=== PATIENT | male | born 1950 | race Caucasian/White ===

== ENCOUNTER → 2018-02-14 | Outpatient (CLI) | payer MEDICARE ==
--- NOTE | 2018-02-14 12:21 | EST ---
EXERCISE STRESS DATE OF SERVICE: 02/14/2018 AGE: 68 SEX: M HT: 74 WT: 235 PROTOCOL: Humberto STAGE: III DURATION OF EXERCISE: 7-1/2 minutes HEART RATE REST: 67 BLOOD PRESSURE REST: 157/91 MAXIMUM HEART RATE ACHIEVED: 136 MAXIMUM BLOOD PRESSURE: 192/91 85% MPHR: 131 100% MPHR: 154 METS: 9 INDICATIONS: Dyspnea. CLINICAL INFORMATION: Baseline EKG shows sinus rhythm, PVCs and nonspecific ST-T wave changes. Patient exercised on Humberto protocol for a total of 7-1/2 minutes, achieving 9 METs, 88% of predicted maximal heart rate without chest pain. There was worsening of the baseline ST-T wave changes noted. CONCLUSIONS: 1. Average exercise tolerance. 2. Inconclusive EKG part of the stress test due to baseline EKG abnormalities. 3. Consider stress imaging study for more definitive evaluation. MMJOSE E / ADALIN: [id number] /
--- NOTE | 2018-02-14 12:23 | ECHOF ---
Referral Reason:R06.00 Dyspnea unspecified MEASUREMENTS -------- HEIGHT: 188.0 cm WEIGHT: 106.6 kg BP: 157/91 RVIDd: 3.6 cm (< 3.3) IVSd: 1.1 cm (0.6 - 1.1) LVIDd: 4.6 cm (3.9 - 5.3) LVPWd: 1.2 cm (0.6 - 1.1) IVSs: 1.4 cm LVIDs: 3.5 cm LVPWs: 1.8 cm LA Diam: 4.5 cm (2.7 - 3.8) LAESV Index (A-L): 33.00 ml/m Ao Diam: 3.5 cm (2.0 - 3.7) AV Cusp: 2.4 cm (1.5 - 2.6) EPSS: 1.2 cm MV E Chase: 0.62 m/s MV DecT: 316 ms MV A Chase: 0.92 m/s MV E/A Ratio: 0.67 AV maxP.13 mmHg AV meanP.48 mmHg RAP: 5.00 mmHg RVSP: 41.37 mmHg MV EF SLOPE: 39.73 mm/s (70 - 150) MV EXCURSION: 1.65 cm (> 18.000) FINDINGS -------- This was a technically adequate study. The left ventricular size is normal. There is borderline concentric left ventricular hypertrophy. Overall left ventricular systolic function is low-normal with, an EF between 50 - 55 %. Basal infe roseptal LV wall motion is dyskinetic. The right ventricle is mildly enlarged. LA is midly dilated 29-33ml/m2. The right atrium is normal in size. There is mild aortic valve sclerosis. Mild mitral regurgitation is present. Mild tricuspid regurgitation present. There is mild pulmonary hypertension. The right ventricular systolic pressure, as measured by Doppler, is 41.37mmHg. There is no pulmonic regurgitation present. The aortic root size is normal. IVC Not well visulized. There is no pericardial effusion. CONCLUSIONS -------- 1. This was a technically adequate study. 2. The left ventricular size is normal. 3. There is borderline concentric left ventricular hypertrophy. 4. Overall left ventricular systolic function is low-normal with, an EF between 50 - 55 %. 5. Basal inferoseptal LV wall motion is abnormal- couild be due to cardiac arrythemia or old mi. 6. The right ventricle is mildly enlarged. 7. LA is midly dilated 29-33ml/m2. 8. The right atrium is normal in size. 9. There is mild aortic valve sclerosis. 10. Mild mitral regurgitation is present. 11. Mild tricuspid regurgitation present. 12. There is mild pulmonary hypertension. 13. The right ventricular systolic pressure, as measured by Doppler, is 41.37mmHg. 14. There is no pulmonic regurgitation present. 15. The aortic root size is normal. 16. IVC Not well visulized. 17. There is no pericardial effusion. HVAC REFRIGERATION TECHNICIAN: ERIKA De La Torre
== END | disposition home or self-care (01) ==
LOC: RADNMMAIN 10:20
PROVIDERS: ATTEND Internal Medicine
DX: I08.3 Combined rheumatic disorders of mitral, aortic and tricuspid valves (principal); I27.20 Pulmonary hypertension, unspecified; R94.31 Abnormal electrocardiogram [ECG] [EKG]; R06.00 Dyspnea, unspecified
CPT/HCPCS: 93017; 93306

== ENCOUNTER → 2019-04-17 | Outpatient (CLI) | payer MEDICARE ==
[2019-04-17 12:19] LABS: African American GFR (CKD) >90 (>60 ml/min/1.73 sqM); Anion Gap 7 mmol/L; Blood Urea Nitrogen 12 mg/dL (9-20); Carbon Dioxide 30 mmol/L (22-30); Chloride 104 mmol/L (98-107); Potassium 4.3 mmol/L (3.5-5.1); Sodium 141 mmol/L (137-145)
[2019-04-17 12:26] LABS: HCT 45.6 % (39.0-53.0); HGB 15.8 gm/dL (13.0-17.5); MCH 32.2 pg (25.0-35.0); MCHC 34.7 g/dL (31.0-37.0); MCV 92.9 fL (80.0-100.0); Mean Platelet Volume 9.1; Platelet Count 155 k/uL (150-450); RBC 4.91 m/uL (4.30-5.90); RDW 15.3 % (11.5-15.5); WBC 4.6 k/uL (3.8-10.6)
== END | disposition home or self-care (01) ==
LOC: LABPAT 11:39
PROVIDERS: ATTEND Internal Medicine Interventional Cardiology
DX: Z01.812 Encounter for preprocedural laboratory examination (principal); R94.39 Abnormal result of other cardiovascular function study
CPT/HCPCS: 36415; 80051; 82565; 84520; 85027

== ENCOUNTER 2019-04-23 09:17 | Day surgery (SDC) | payer MEDICARE ==
[2019-04-18 11:51] VITALS: BMI 27.6
[~2019-04-23 09:17] MED LIST: ALPRAZolam 0.25 MG TAB PO PRN; ALPRAZolam 0.5 MG TAB PO PRN; ASPIRIN 325 MG TAB PO STA; ATORVASTATIN 80 MG TAB PO STA; NITROGLYCERIN SL TABS 0.4 MG TAB SUBLINGUAL PRN; SODIUM CHLORIDE 0.9% 1,000 ML in EMPTY BAG 1 BAG IV ONE
[2019-04-23 09:51] VITALS: TEMP 97.9
[2019-04-23] MEDS ORDERED: HEPARIN SODIUM 1,000 UN/ML (10ML VL) ONE (10:27)
[2019-04-23] MEDS ORDERED: VERAPAMIL 2.5 MG/ML 2 ML AMP ONE (10:27)
[2019-04-23] MEDS ORDERED: LIDOCAINE 1% INJ 10MG/ML (20 ML MDV) ONE (10:27)
[2019-04-23] MEDS ORDERED: MIDAZOLAM (PF) 2 MG/2 ML VIAL IVP ONE (10:46)
[2019-04-23] MEDS ORDERED: LIDOCAINE 1% INJ 10MG/ML (20 ML MDV) SQ ONE (10:54)
[2019-04-23] MEDS ORDERED: VERAPAMIL SYRINGE (5 MG/10 ML) INTRAARTER ONE ×2 (10:55→11:12)
[2019-04-23] MEDS ORDERED: NITROGLYCERIN SL TABS 0.4 MG TAB SUBLINGUAL ONE (10:55)
[2019-04-23] MEDS ORDERED: HEPARIN SODIUM 1,000 UN/ML (10ML VL) IV ONE (11:03)
[2019-04-23] MEDS ORDERED: IOPAMIDOL-370 100ML BTL INJ ONE (11:13)
[2019-04-23] MEDS ORDERED: SODIUM CHLORIDE 0.9% 1,000 ML IV SCH (11:20)
--- NOTE | 2019-04-23 12:39 | CC ---
CARDIAC CATHETERIZATION REPORT DATE OF SERVICE: 04/23/2019. PROCEDURE: Coronary angiography. PERFORMED BY: Dr. Shabnam Colvin. Moderate conscious sedation time was 21 minutes. Patient was administered Versed. His oxygen saturation, hemodynamics and EKG were monitored closely. CLINICAL INFORMATION: Mr. Pedroza is a 69-year-old gentleman with recent diagnosis of what seems to be nonischemic cardiomyopathy with ejection fraction of 45%, range with an abnormal stress test with areas of fixed defect. He was advised coronary angiography to rule out any obstructive CAD as an explanation for his decreased LV function. Rationale, risks, benefits, options were explained and patient was brought in for the procedure electively. PROCEDURE NOTE: Under local anesthesia and strict aseptic precautions, a 6-Yoruba introducer was placed in the right radial artery. Using a JR4 and JL3.5 catheters, I performed coronary angiography. The patient had a bovine arch. Technically, it was somewhat difficult. I used a Glidewire to get into the ascending aorta and then switched over to a regular wire and I was able to get selective coronary angiography, but I did not persist getting into the LV to check pressures because of extreme tortuosity. Patient tolerated procedure well. The sheath was taken out and saturation of the fingers of the right hand was 90%. CORONARY ANGIOGRAPHY FINDINGS: RIGHT CORONARY ARTERY: Technically dominant vessel. No significant disease, gives of acute marginal branches proximally and in the distal portion and gives off what seems to be a PDA and PLV, both of which are small in caliber in distribution de la torre. There is no significant disease. There is a small acute marginal. The PDA branch is large in caliber and distribution, but PLV smaller. There is another acute marginal branch that comes off from the RCA which has about a 30% to 40% narrowing. The PLV distribution is supplied mostly by the this acute marginal and a small PLV, but no significant disease. PDA is free of significant disease, dominant RCA has no significant disease. LEFT MAIN CORONARY ARTERY: Short patent vessel that immediately bifurcates into LAD and circumflex. No significant disease. LEFT ANTERIOR DESCENDING CORONARY ARTERY: Good caliber vessel. In the proximal portion after a small diagonal branch, there is an eccentric 40% narrowing after which the caliber improves and the vessel runs all the way to the apex supplying a sizable amount of myocardium. There is no significant disease in the rest of the LAD, 40% proximal/mid LAD lesion is noted. The LAD gives off what seems to be septal and diagonal branches and runs all the way to the apex and curves over the apex to supply the inferoapical portion of left ventricle. The entire LAD system is free of significant disease. In the proximal 1/3 after the first diagonal branch is eccentric 40% narrowing, which I do not believe is significant. There is a smooth narrowing. LEFT POSTERIOR CIRCUMFLEX CORONARY ARTERY: Technically a nondominant vessel, gives of one single obtuse marginal proximally and distally, it gives off a second obtuse marginal and continues as a posterolateral branch. The second obtuse marginal has an eccentric area of about 30% narrowing. In multiple coronal projection, there is no significant disease. The continuation of circumflex which continues as a posterolateral branch has no significant disease. The circumflex therefore is a relatively disease-free vessel. FINAL IMPRESSION: This patient has a right dominant system. No significant disease in the RCA. The circumflex second obtuse marginal has about a 35% narrowing. The LAD has a 40% eccentric lesion in the midportion right after a small diagonal branch. Filling pressures are not checked. RECOMMENDATIONS: I am recommending that we will pursue medical therapy with statins, beta blockers and also losartan and aspirin. The patient will be discharged later on today if he remains stable. I will repeat an echo to assess LV function. I discussed my thoughts in detail with the patient and family. He will be discharged later on today if he remains stable. MMVIVIANAL / ADALIN: [id number] /
[2019-04-23 14:29] VITALS: BP 125/62; PULSE 58; RESP 16
--- NOTE | 2019-04-24 13:43 | ECHOF ---
Referral Reason:LV function MEASUREMENTS -------- HEIGHT: 182.9 cm WEIGHT: 97.1 kg BP: IVSd: 1.1 cm (0.6 - 1.1) LVIDd: 3.7 cm (3.9 - 5.3) LVPWd: 1.5 cm (0.6 - 1.1) IVSs: 1.4 cm LVIDs: 2.9 cm LVPWs: 1.6 cm LAESV Index (A-L): 28.15 ml/m Ao Diam: 3.1 cm (2.0 - 3.7) AV Cusp: 2.0 cm (1.5 - 2.6) LA Diam: 3.1 cm (2.7 - 3.8) MV EXCURSION: 18.742 mm (> 18.000) MV EF SLOPE: 64 mm/s (70 - 150) EPSS: 2.7 cm MV E Chase: 0.55 m/s MV DecT: 357 ms MV A Chase: 0.78 m/s MV E/A Ratio: 0.71 RAP: 5.00 mmHg RVSP: 15.84 mmHg FINDINGS -------- Sinus rhythm. This was a technically good study. The left ventricular size is normal. There is mild concentric left ventricular hypertrophy. Overa ll left ventricular systolic function is mild-moderately impaired with, an EF between 40 - 45 %. Ba jai inferoseptal LV wall motion is hypokinetic. Mid inferoseptal LV wall motion is hypokinetic. Inferiorlateral Hypokinesis The right ventricle is normal in size. The left atrial size is normal. Normal LA size by volume 22+/-6 ml/m2. The right atrial size is normal. The aortic valve is trileaflet and appears structurally normal. The mitral valve is normal. The mitral valve leaflets are mildly thickened. Mild mitral regurgita tion is present. The tricuspid valve appears structurally normal. Mild tricuspid regurgitation present. Right vent ricular systolic pressure is normal at < 35 mmHg. There is no pulmonic regurgitation present. The aortic root size is normal. Normal inferior vena cava with normal inspiratory collapse consistent with estimated right atrial pre ssure of 5 mmHg. There is no pericardial effusion. CONCLUSIONS -------- 1. Sinus rhythm. 2. This was a technically good study. 3. The left ventricular size is normal. 4. There is mild concentric left ventricular hypertrophy. 5. Overall left ventricular systolic function is mild-moderately impaired with, an EF between 40 - 45 %. 6. Basal inferoseptal LV wall motion is hypokinetic. 7. Mid inferoseptal LV wall motion is hypokinetic. 8. Inferiorlateral Hypokinesis 9. The right ventricle is normal in size. 10. The left atrial size is normal. 11. Normal LA size by volume 22+/-6 ml/m2. 12. The right atrial size is normal. 13. The aortic valve is trileaflet and appears structurally normal. 14. The mitral valve is normal. 15. The mitral valve leaflets are mildly thickened. 16. Mild mitral regurgitation is present. 17. The tricuspid valve appears structurally normal. 18. Mild tricuspid regurgitation present. 19. Right ventricular systolic pressure is normal at < 35 mmHg. 20. There is no pulmonic regurgitation present. 21. The aortic root size is normal. 22. Normal inferior vena cava with normal inspiratory collapse consistent with estimated right atrial pressure of 5 mmHg. 23. There is no pericardial effusion. [employer] LENS TECHNICIAN: Ashlee Moore RDCS
== END 2019-04-23 16:55 | disposition home or self-care (01) ==
LOC: CATHCVL 09:17
PROVIDERS: ATTEND Internal Medicine Interventional Cardiology
DX: I25.10 Atherosclerotic heart disease of native coronary artery without angina pectoris (principal); I77.1 Stricture of artery; I08.1 Rheumatic disorders of both mitral and tricuspid valves; I42.0 Dilated cardiomyopathy; I49.3 Ventricular premature depolarization; E03.9 Hypothyroidism, unspecified; Z79.82 Long term (current) use of aspirin; Z79.890 Hormone replacement therapy; Z79.899 Other long term (current) drug therapy
CPT/HCPCS: 93306; 93454; C1769 ×2; C1894; J2001; J1644; Q9967; J2250